=== PATIENT | female | born 1965 | race Caucasian/White ===

== ENCOUNTER 2024-10-04 20:34 | Emergency (ER) | payer SELFPAY ==
[2024-10-04 20:36] VITALS: BP 179/98
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
[2024-10-05 01:07] VITALS: BP 157/94
== END 2024-10-05 01:15 | disposition home or self-care (01) ==
LOC: EMR 20:34
PROVIDERS: EMERGENCY PHYSICIAN Student in an Organized Health Care Education/Training Program; FAMILY PHYSICIAN Physician Assistant Medical
DX: M79.644 Pain in right finger(s) (principal); R07.89 Other chest pain; V40.5XXA Car driver injured in collision with pedestrian or animal in traffic accident, initial encounter
CPT/HCPCS: 99283; 29125; 71046; 73140